=== PATIENT | female | born 1940 | race Caucasian/White ===

== ENCOUNTER 2016-05-07 08:53 | Outpatient (CLI) | payer MEDICARE, BC | END 2016-05-07 08:54 | disposition home or self-care (01) | DX: K76.0 Fatty (change of) liver, not elsewhere classified (principal) ==

== ENCOUNTER 2016-09-03 09:15 | Day surgery (SDC) | payer MEDICARE, BC ==
[2016-09-03] MEDS ORDERED: LACTATED RINGERS 1,000 ML IV ONE ×2 (09:44→11:21)
[2016-09-03] MEDS ORDERED: fentaNYL 100 MCG/2 ML VIAL IVP ONE (10:30)
[2016-09-03] MEDS ORDERED: MIDAZOLAM 2 MG/2 ML VIAL IVP ONE (10:30)
[2016-09-03 11:20] VITALS: BP 125/50
--- NOTE | 2016-09-08 08:13 | PROCEDURE REPORT ---
DATE OF PROCEDURE: 09/03/2016 00:00:00 PROCEDURE: Colonoscopy. ENDOSCOPIST: Musa Meng MD PRIMARY CARE PROVIDER: Jennifer Stiles MD INDICATION: Diarrhea, fecal incontinence; also with a history of colon polyps. PREMEDICATIONS: Fentanyl 150 mcg, Versed 7 mg IV titration. OPERATIVE PROCEDURE: After informed consent was obtained, the patient was placed in the left lateral decubitus position. The video colonoscope was introduced into the rectum and slowly advanced to the cecum. On slow withdrawal , the mucosa was carefully examined. The scope was removed. The patient tolerated the procedure well. BLOOD LOSS: None. COMPLICATIONS: None. FINDINGS 1. A 10 mmm sessile polyp at the right colon, cold piecemeal snared, removed, and retrieved. 2. Scattered diverticulosis, worse on the left than the right, but pancolonic. 3. Otherwise negative colonoscopy to cecum with normal mucosa. Random biopsies taken to rule out microscopic colitis. Patient will follow up with Dr. So for results but will need recall colonoscopy in 3 years. JOB #: [id number] EXT JOB #:[id number] MTDD
== END 2016-09-03 09:16 | disposition home or self-care (01) ==
LOC: SDS 09:15
PROVIDERS: ATTEND Internal Medicine Gastroenterology
PROC: 0DBF8ZX Excision of Right Large Intestine, Via Natural or Artificial Opening Endoscopic, Diagnostic (ICD-10-PCS; 2016-09-03)
PROC: 0DBE8ZX Excision of Large Intestine, Via Natural or Artificial Opening Endoscopic, Diagnostic (ICD-10-PCS; principal; 2016-09-03 10:30)
DX: R19.7 Diarrhea, unspecified (principal); R15.9 Full incontinence of feces; D12.2 Benign neoplasm of ascending colon; K57.30 Diverticulosis of large intestine without perforation or abscess without bleeding; E11.9 Type 2 diabetes mellitus without complications; I10 Essential (primary) hypertension; E78.00 Pure hypercholesterolemia, unspecified; Z79.84 Long term (current) use of oral hypoglycemic drugs; Z79.4 Long term (current) use of insulin
CPT/HCPCS: 45380; 45385; 88305; J7120

== ENCOUNTER 2016-09-05 09:40 | Outpatient (CLI) | payer MEDICARE, BC ==
[2016-09-05 15:18] LABS: BILIRUBIN,DIRECT 0.2 mg/dL (0.1-0.5); BILIRUBIN,TOTAL 0.5 mg/dL (0.2-1.0); TOTAL PROTEIN 6.7 g/dL (6.7-8.2)
== END 2016-09-05 09:41 | disposition home or self-care (01) ==
LOC: LAB.WCP 09:40
PROVIDERS: ATTEND Physician Assistant Medical
DX: R74.8 Abnormal levels of other serum enzymes (principal)
CPT/HCPCS: 36415; 80076

== ENCOUNTER 2016-10-23 05:01 | Outpatient (CLI) | payer MEDICARE, BC | END 2016-10-23 05:02 | disposition critical access hospital (66) | LOC: EMS 05:01 | PROVIDERS: ATTEND Surgery | DX: R41.0 Disorientation, unspecified (principal) | CPT/HCPCS: A0425; A0427 ==

== ENCOUNTER 2016-10-23 05:20 | Emergency (ER) | payer MEDICARE, BC ==
[2016-10-23 05:51] LABS: BASOPHILS % (AUTO) 0.8 %; HGB - HEMOGLOBIN 13.9 g/dL (12.0-16.0); LYMPHOCYTES # (AUTO) 0.7 10^3/uL (1.5-3.5); MEAN CORPUSCULAR HEMOGLOBIN 35.6 pg (27.0-31.0); MEAN CORPUSCULAR VOLUME 107.9 fL (81.0-99.0); MEAN PLATELET VOLUME 7.7 fL (7.9-10.8); MONOCYTES # (AUTO) 0.3 10^3/uL (0.0-1.0); MONOCYTES % (AUTO) 5.5 %; NEUTROPHILS # (AUTO) 3.6 10^3/uL (1.5-6.6); NEUTROPHILS % (AUTO) 77.7 %; NUCLEATED RED BLOOD CELLS AUTO 0.1 /100WBC; RED CELL DISTRIBUTION WIDTH 14.7 % (12.0-15.0); UNCORRECTED WHITE BLOOD COUNT 4.7 x10^3/uL; WHITE BLOOD COUNT 4.7 x10^3/uL (4.8-10.8)
[2016-10-23 06:00] LABS: ALBUMIN/GLOBULIN RATIO 1.2 (1.0-2.2); BILIRUBIN,TOTAL 0.5 mg/dL (0.2-1.0); CALCIUM 8.7 mg/dL (8.5-10.3); CREATININE 0.7 mg/dL (0.4-1.0); POTASSIUM 3.9 mmol/L (3.5-5.0); TOTAL PROTEIN 7.4 g/dL (6.7-8.2)
[2016-10-23 06:13] LABS: BILIRUBIN,URINE NEGATIVE (NEGATIVE)
[2016-10-23 06:21] LABS: UA w/ MICROSCOPIC CHARGE YES
[2016-10-23 06:34] LABS: UR CULTURE IF IND INDICATED
[2016-10-23] MEDS ORDERED: NITROFURANTOIN MACRO 100 MG CAPSULE PO STA (06:36)
[2016-10-23 06:37] VITALS: BP 142/74
--- NOTE | 2016-10-23 06:38 | ED Physician Documentation ---
History of Present Illness - Stated complaint Stated Complaint: HYPOGLYCEMIA/ETOH - Chief complaint Chief Complaint: General - History obtained from History obtained from: Patient, EMS - Additonal information Additional information: Patient is a 75 year old female with a history of diabetes and alcohol abuse. Patient had been drinking yesterday and doesn't remember if she had taken her meds. Patient woke up and felt shaking and called ems. patient's glucose at the time was 55. patient was treated with oral and IV glucose and brought in for evaluation. Upon initial evaluation in the emergency department patient stated that she felt a little anxious but otherwise ok. Review of Systems Constitutional: reports: Fever, Chills Eyes: denies: Decreased vision Ears: denies: Ear pain Nose: denies: Rhinorrhea / runny nose, Congestion, Epistaxis Throat: denies: Oral lesions / sores, Sore throat Cardiac: denies: Chest pain / pressure, Palpitations Respiratory: denies: Cough, Wheezing GI: denies: Abdominal Pain, Nausea, Vomiting, Constipation, Diarrhea : denies: Dysuria, Frequency Musculoskeletal: denies: Neck pain, Back pain, Extremity pain Neurologic: reports: Generalized weakness. denies: Focal weakness, Numbness Psychiatric: denies: Depressed, Suicidal Immunocompromised: denies: Immunocompromised PD PAST MEDICAL HISTORY - Past Medical History Cardiovascular: Hypertension, High cholesterol, Arrhythmia Respiratory: None Neuro: None Endocrine/Autoimmune: Type 2 diabetes GI: GERD : Incontinence HEENT: Other Psych: None Musculoskeletal: None Derm: None - Past Surgical History Past Surgical History: Yes Ortho: Other /[employer]: Dilation and currettage HEENT: Tonsil/Adenoidectomy - Present Medications Home Medications: Ambulatory Orders Medication Instructions Recorded Confirmed Esomeprazole Magnesium [Nexium] 40 mg PO DAILY 12/06/12 10/23/16 buPROPion [Wellbutrin Xl] 2 mg PO DAILY 12/06/12 10/23/16 Aspirin [Adult Low Dose Aspirin EC] 1 tab PO DAILY 09/03/16 10/23/16 SITagliptin [Januvia] 1 tab PO DAILY 09/03/16 10/23/16 Cholecalciferol (Vitamin D3) 1,000 unit PO DAILY 10/23/16 10/23/16 [Vitamin D3] Cyanocobalamin (Vitamin B-12) 1,000 mcg SL DAILY 10/23/16 10/23/16 [Vitamin B-12 (1000 mcg sublingual)] Hydrochlorothiazide 25 mg PO QDBREAKFAST 10/23/16 10/23/16 Insulin Glargine [Lantus] 45 units SUBQ QPM 10/23/16 10/23/16 Metoprolol Succinate 25 mg PO BID 10/23/16 10/23/16 Nitrofurantoin Monohyd/M-Cryst 100 mg PO BID 5 Days 10/23/16 [Macrobid 100 mg Capsule] Telmisartan 80 mg PO DAILY 10/23/16 10/23/16 - Allergies Allergies/Adverse Reactions: Allergies Allergy/AdvReac Type Severity Reaction Status Date / Time ciprofloxacin [From Cipro] AdvReac Mild Nausea Verified 10/23/16 05:26 ciprofloxacin HCl * AdvReac Mild Nausea Verified 10/23/16 05:26 [From Cipro] hydrocodone [Hydrocodone] AdvReac Mild Nausea Verified 10/23/16 05:26 irbesartan [From Avapro] AdvReac Mild unknown Verified 10/23/16 05:26 toro inhibitors AdvReac Mild unknown Uncoded 10/23/16 05:26 - Social History Does the pt smoke?: No Smoking Status: Never smoker Does the pt drink ETOH?: Yes Does the pt have substance abuse?: No - Immunizations Immunizations are current?: No Immunizations: TDAP >10years/unknown PD ED PE NORMAL - Vitals Vital signs reviewed: Yes - General General: Alert and oriented X 3 - HEENT HEENT: Atraumatic, PERRL - Neck Neck: Supple, no meningeal sign - Cardiac Cardiac: RRR, No murmur - Respiratory Respiratory: No respiratory distress, Clear bilaterally - Abdomen Abdomen: Soft, Non tender - Derm Derm: Normal color, Warm and dry, No rash - Extremities Extremities: No deformity, No edema - Neuro Neuro: Alert and oriented X 3, No sensory deficit, Normal speech PD ED PE EXPANDED - General General: Alert, Anxious - HEENT HEENT: Dry mucous membranes - Neuro Neuro: Other (mild tremor) Results - Vitals Vitals: Vital Signs - 24 hr 10/23/16 05:23 Temperature 35.3 C L Heart Rate 68 Respiratory 18 Rate Blood Pressure 162/108 H O2 Saturation 100 Oxygen O2 Source Room air - Labs Labs: Laboratory Tests 10/23/16 10/23/16 10/23/16 05:30 05:30 06:02 WBC 4.7 L RBC 3.90 L Hgb 13.9 Hct 42.0 MCV 107.9 H MCH 35.6 H MCHC 33.0 RDW 14.7 Plt Count 223 MPV 7.7 L Neut # 3.6 Lymph # 0.7 L [place] # 0.3 Eos # 0.0 Baso # 0.0 Absolute Nucleated RBC 0.00 Nucleated RBCs 0.1 Sodium 142 Potassium 3.9 Chloride 103 Carbon Dioxide 24 Anion Gap 15.0 H BUN 11 Creatinine 0.7 Estimated GFR (MDRD) 82 L Glucose 217 H Calcium 8.7 Total Bilirubin 0.5 AST 86 H ALT 67 H Alkaline Phosphatase 84 Total Protein 7.4 Albumin 4.1 Globulin 3.3 Albumin/Globulin Ratio 1.2 Lipase 36 Urine Color YELLOW Urine Clarity HAZY Urine pH 7.0 Ur Specific [place] 1.010 Urine Protein NEGATIVE Urine Glucose (UA) 100 H Urine Ketones NEGATIVE Urine Occult Blood NEGATIVE Urine Nitrite POSITIVE H Urine Bilirubin NEGATIVE Urine Urobilinogen 0.2 (NORMAL) Ur Leukocyte Esterase SMALL H Urine RBC 0-5 Urine WBC 11-25 H Ur Squamous Epith Cells FEW Squamous Urine Bacteria Many H Ur Microscopic Review INDICATED Urine Culture Comments INDICATED PD MEDICAL DECISION MAKING - ED course Complexity details: reviewed old records, reviewed results, re-evaluated patient , considered differential, d/w patient ED course: Patient was seen and examined at bedside. IV access was gained and labs were drawn. Patient was given a sandwich and oral hydration. Patient's diagnostics revealed a urinary tract infection but the blood glucose remained stable. patient stated she wanted to go back home. Patient was treated with macrobid. Patient's discharge blood glucose was over 200. Patient stated that she would call her daughter to come see her today. Patient also stated that she knew she had a drinking problem but that she would deal with it after vacation. Departure - Departure Disposition: 01 Home, Self Care Clinical Impression: Blood glucose abnormal, Urinary tract infection Condition: Good Instructions: ED Diabetes Hypoglycemia Oral Agent, ED UTI Cystitis Female Follow-Up: primary,care provider [Other] - Within 3 Days Prescriptions: Nitrofurantoin Monohyd/M-Cryst [Macrobid 100 mg Capsule] 100 mg PO BID 5 Days Comments: Your diagnostics today revealed a urinary tract infection. You were treated with your first dose of antibiotics today and will need to take them for the next five days. It is important that you maintain adequate food intake while drinking alcohol. As you know it is very important that you cut back on your drinking. You should call your doctor to schedule a follow up appointment and make sure that you eat throughout the day. You may return to the emergency department at any time for new, worsening or uncontrollable symptoms.
[2016-10-23] MEDS ORDERED: NITROFURANTOIN MACRO 100 MG CAPSULE PO ONE (06:49)
== END 2016-10-23 08:50 | disposition home or self-care (01) ==
LOC: EDUNIT# → ED 05:20
DX: E11.9 Type 2 diabetes mellitus without complications (principal); N39.0 Urinary tract infection, site not specified; F10.10 Alcohol abuse, uncomplicated; I10 Essential (primary) hypertension; Z79.82 Long term (current) use of aspirin; Z79.4 Long term (current) use of insulin
CPT/HCPCS: 36415; 80053; 81001; 83690; 85025; 87086; 87181; 99283; 99284; A9270; 81003

== ENCOUNTER 2017-03-17 10:30 | Outpatient (CLI) | payer MEDICARE, BC ==
--- NOTE | 2017-03-17 20:12 | CT Report ---
DATE OF SERVICE: 03/17/2017 CT CHEST WITHOUT CONTRAST: 03/17/2017 CLINICAL INDICATION: Emphysema, nodule on previous low-dose screening exam, continued low dose screening. Axial CT images of the chest were obtained without intravenous contrast, using low dose screening technique. In accordance with CT protocol optimization, one or more of the following dose reduction techniques were utilized for this exam: Automated exposure control, adjustment of mA and/or KV based on patient size, or use of iterative reconstructive technique. COMPARISON: 09/26/2015, chest x-ray 03/16/2017. The heart and great vessels demonstrate mild atherosclerotic calcification. Hiatal hernia is stable. There is new bibasilar atelectasis, left greater than right, with trace left effusion, likely related to the patient's recent left rib fractures. The atelectasis at the left base does obscure the previously identified pulmonary nodule. No pneumothorax is evident. Limited evaluation of upper abdominal structures demonstrates normal adrenal glands. Osseous structures demonstrate degenerative changes and fractures of the left 7th, 8th, and 9th ribs. IMPRESSION: Left greater than right atelectasis, with trace effusion, likely due to splinting from recent left rib fractures. Atelectasis does obscure the previously noted left lower lobe pulmonary nodule. Followup chest CT following healing of the rib fractures and resolution of atelectasis is recommended. LUNG RADS category 3, probable benign findings, short-term followup. TD: 03/17/2017 21:11
== END 2017-03-17 10:31 | disposition home or self-care (01) ==
LOC: DI 10:30
PROVIDERS: ATTEND Physician Assistant Medical
DX: J43.9 Emphysema, unspecified (principal); J98.4 Other disorders of lung; Z87.891 Personal history of nicotine dependence

== ENCOUNTER 2017-09-28 08:00 | Outpatient (CLI) | payer MEDICARE, BC ==
[2017-09-28 19:49] LABS: ALBUMIN 3.7 g/dL (3.2-5.5); ALBUMIN/GLOBULIN RATIO 0.9 (1.0-2.2); BILIRUBIN,TOTAL 1.1 mg/dL (0.2-1.0); CALCIUM 9.5 mg/dL (8.5-10.3); TOTAL PROTEIN 7.6 g/dL (6.7-8.2)
== END 2017-09-28 08:01 ==
LOC: LAB.WCP 08:00
PROVIDERS: ATTEND Family Medicine
DX: R10.9 Unspecified abdominal pain (principal); R11.0 Nausea
CPT/HCPCS: 36415; 80053; 82150; 83690

== ENCOUNTER 2017-09-30 08:00 | Outpatient (CLI) | payer MEDICARE, BC ==
[2017-09-30 19:31] LABS: H. PYLORIS ANTIGEN STL NEGATIVE (Negative)
== END 2017-09-30 08:01 ==
LOC: LAB.WCP 08:00
PROVIDERS: ATTEND Family Medicine
DX: K21.9 Gastro-esophageal reflux disease without esophagitis (principal)
CPT/HCPCS: 87338

== ENCOUNTER 2018-01-19 10:13 | Outpatient (CLI) | payer MEDICARE, BC ==
[2018-01-19 13:03] LABS: ALBUMIN 3.3 g/dL (3.2-5.5); ALKALINE PHOSPHATASE 137 IU/L (42-121); ALT ALANINE AMINOTRANSFERASE 107 IU/L (10-60); AST ASPARTATE AMINOTRANSFERASE 122 IU/L (10-42); BILIRUBIN,TOTAL 1.7 mg/dL (0.2-1.0); BUN - BLOOD UREA NITROGEN 10 mg/dL (6-20); CALCIUM 9.1 mg/dL (8.5-10.3); CARBON DIOXIDE - CO2 33 mmol/L (21-32); CHLORIDE 89 mmol/L (101-111); GFR - MDRD 54 (>89); GLUCOSE 101 mg/dL (70-100); SODIUM 132 mmol/L (135-145); TOTAL PROTEIN 6.7 g/dL (6.7-8.2)
== END 2018-01-19 23:59 | disposition home or self-care (01) ==
LOC: LAB.WCP 10:13
PROVIDERS: ATTEND Family Medicine
DX: K76.0 Fatty (change of) liver, not elsewhere classified (principal); R94.6 Abnormal results of thyroid function studies; R74.8 Abnormal levels of other serum enzymes
CPT/HCPCS: 36415; 80053; 84443

== ENCOUNTER 2018-02-11 08:11 | Outpatient (CLI) | payer MEDICARE, BC ==
--- NOTE | 2018-02-11 10:26 | Ultrasound Report ---
Reason: ALCOHOLISM,ABDOMINAL PAIN,FATTY LIVER DISEASE Procedure Date: 02/11/2018 Accession Number: [id number] / [id number] Procedure: US - Abdomen Complete CPT Code: FULL RESULT: EXAM: ABDOMEN ULTRASOUND EXAM DATE: 02/11/2018 08:44 AM. CLINICAL HISTORY: Alcoholism, abdominal pain, fatty liver disease. COMPARISON: Abdomen/pelvis 09/15/2005 8:21 AM. TECHNIQUE: Real-time scanning was performed with static images obtained. FINDINGS: Liver: Markedly echogenic and heterogeneous liver parenchyma which limits evaluation for masses, though none are seen. Right lobe of the liver measures at least 21.3 cm which is enlarged. Main portal vein flow: Hepatopetal. Gallbladder: Normal. No stones, wall thickening, or sonographic Carlson's sign. Biliary System: Common bile duct measures 6 mm. No intrahepatic or extrahepatic ductal dilatation. Pancreas: Visualized portion is unremarkable. Kidneys: Right: 10.9 cm longitudinally. Normal. No contour-deforming mass, stones, or hydronephrosis. Left: 11 cm longitudinally. Normal. No contour-deforming mass, stones, or hydronephrosis. Spleen: 10.1 cm. Normal in size and echotexture. Aorta and Inferior Vena Cava: Unremarkable. Other: None. IMPRESSION: Echogenic parenchyma in the setting of hepatomegaly most likely representing hepatic steatosis. RADIA
== END 2018-02-11 08:12 | disposition home or self-care (01) ==
LOC: DI 08:11
PROVIDERS: ATTEND Family Medicine
DX: K76.0 Fatty (change of) liver, not elsewhere classified (principal); F10.20 Alcohol dependence, uncomplicated; R10.9 Unspecified abdominal pain; R74.8 Abnormal levels of other serum enzymes
CPT/HCPCS: 76700

== ENCOUNTER 2018-08-18 16:00 | Outpatient (CLI) | payer MEDICARE, BC | END 2018-08-18 23:59 | disposition home or self-care (01) | LOC: LAB.R 16:00 | PROVIDERS: ATTEND Physician Assistant Medical | DX: N76.0 Acute vaginitis (principal) | CPT/HCPCS: 87086; 87181 ==

== ENCOUNTER 2018-09-03 08:00 | Outpatient (CLI) | payer MEDICARE, BC | END 2018-09-03 08:01 | disposition home or self-care (01) | LOC: LAB.WCP 08:00 | PROVIDERS: ATTEND Physician Assistant Medical | DX: N39.0 Urinary tract infection, site not specified (principal) | CPT/HCPCS: 81002 ==

== ENCOUNTER 2019-09-01 09:10 | Outpatient (CLI) | payer MEDICARE, BC | END 2019-09-01 23:59 | disposition home or self-care (01) | LOC: COV 09:10 | PROVIDERS: ATTEND Family Medicine | DX: Z20.828 Contact with and (suspected) exposure to other viral communicable diseases (principal) ==

== ENCOUNTER 2019-10-03 08:00 | Outpatient (CLI) | payer MEDICARE, BC | END 2019-10-03 23:59 | disposition home or self-care (01) | LOC: LAB.WCP 08:00 | PROVIDERS: ATTEND Physician Assistant Medical | DX: Z53.9 Procedure and treatment not carried out, unspecified reason (principal) ==

== ENCOUNTER 2019-10-11 08:16 | Outpatient (CLI) | payer MEDICARE, BC ==
--- NOTE | 2019-10-11 16:41 | DEXA Report ---
PROCEDURE: Dexa Spine and/or Hip INDICATIONS: POST MENOPAUSAL TECHNIQUE: Dual energy x-ray absorptiometry (DXA) was performed on a [employer] System. Regions measur ed are the AP Spine, femoral neck, and if needed forearm. COMPARISON: None. FINDINGS: Lumbar Spine: Bone Mineral Density 1.135 g/cm/cm,T score -0.4, normal Left Hip: Bone Mineral Density 0.769 g/cm/cm,T score -1.9, osteopenia Left Femoral Neck: Bone Mineral Density 0.735 g/cm/cm, T score -2.2, osteopenia (T score greater or equal to -1.0: NORMAL) (T score from -1.1 to -2.4: OSTEOPENIA) (T score less than or equal to -2.5 to: OSTEOPOROSIS) Impression: Moderate to severe osteopenia within the left femoral neck. Patients with diagnosis of osteoporosis or osteopenia should have regular bone mineral density assess ment. For those eligible for Medicare, routine testing is allowed once every 2 years. Testing frequ ency can be increased for patients who have rapidly progressing disease or for those who are receivin g medical therapy to restore bone mass. Reviewed by: Rosana Chow MD on 10/11/2019 4:40 PM PDT Approved by: Rosana Chow MD on 10/11/2019 4:40 PM PDT Station ID: [id number]
== END 2019-10-11 08:17 | disposition home or self-care (01) ==
LOC: DI 08:16
PROVIDERS: ATTEND Physician Assistant Medical
DX: M85.89 Other specified disorders of bone density and structure, multiple sites (principal); I48.91 Unspecified atrial fibrillation; I51.7 Cardiomegaly
CPT/HCPCS: 77080; 93306

== ENCOUNTER 2019-10-11 08:19 | Outpatient (CLI) | payer MEDICARE, BC | END 2019-10-11 08:20 | disposition home or self-care (01) | LOC: DI 08:19 | PROVIDERS: ATTEND Physician Assistant Medical | DX: I48.91 Unspecified atrial fibrillation (principal); I51.7 Cardiomegaly | CPT/HCPCS: 93306 ==

== ENCOUNTER 2019-11-22 09:21 | Outpatient (CLI) | payer MEDICARE, BC ==
--- NOTE | 2019-11-23 09:55 | Mammography Report ---
BILATERAL DIGITAL SCREENING MAMMOGRAM 3D/2D: 11/22/2019 CLINICAL: Family history of breast cancer. Routine screening. Comparison is made to exams dated: 02/19/2015 mammogram, 11/29/2013 mammogram, and 07/13/2012 mammogram - [facility]. There are scattered fibroglandular elements in both breasts. No significant masses, calcifications, or other findings are seen in either breast. There has been no significant interval change. IMPRESSION: NEGATIVE There is no mammographic evidence of malignancy. A 1 year screening mammogram is recommended. This exam was interpreted at Station ID: [id number]. NOTE: For mammograms, a report in lay terms will be sent to the patient. Approximately 15% of breast malignancies will not be visualized mammographically. In the management of a palpable breast mass, a negative mammogram must not discourage biopsy of a clinically suspicious lesion. Electronically Signed By: Alex Underwood M.D. slc/penrad:11/22/2019 11:17:48 ACR BI-RADS Category 1: Negative 3341F PARENCHYMAL PATTERN: (A) - The breast(s) demonstrate(s) scattered fibroglandular densities. BI-RADS CATEGORY: (1) - 1 RECOMMENDATION: (ANNUAL) - Recommend routine annual screening mammography. [id number] 1 year screening LATERALITY: (B)
== END 2019-11-22 09:22 | disposition home or self-care (01) ==
LOC: DI.N 09:21
DX: Z12.31 Encounter for screening mammogram for malignant neoplasm of breast (principal); Z80.3 Family history of malignant neoplasm of breast
CPT/HCPCS: 77063; 77067

== ENCOUNTER 2020-07-25 08:00 | Outpatient (CLI) | payer MEDICARE, BC ==
[2020-07-25 18:33] LABS: CREATININE,URINE 116.1 mg/dL; MICROALBUM/CREATININE RATIO,UR 175.7 ug/mg (<30.0); MICROALBUMIN,URINE 20.4 mg/dL (0-300.0)
== END 2020-07-25 23:59 | disposition home or self-care (01) ==
LOC: LAB.WCP 08:00
PROVIDERS: ATTEND Physician Assistant Medical
DX: E11.49 Type 2 diabetes mellitus with other diabetic neurological complication (principal)
CPT/HCPCS: 82043; 82570